=== PATIENT | female | born 1940 | race Caucasian/White ===

== ENCOUNTER 2021-06-25 11:11 | Inpatient (IN) | payer OTHER, MEDICARE ==
[~2021-06-25] VITALS: Ht 157.5 cm; Wt 72.2 kg
[~2021-06-25 11:11] MED LIST: CARAFATE 11 GM/10 M1 PO; CEFDINIR300 MG PO; FERRO-TIME325 MG PO; HALOPERIDOL 5 MG5 MG PO; HYDROCODON-ACE1 EAC7 PO; ONDANSETRON HCL4 M1 PO; PROTONIX40 M2 PO; RISPERDAL 1 MG T1 MG PO; RISPERDAL2 MG PO
[2021-06-25 11:35] VITALS: BP 125/58
[2021-06-25] MEDS ORDERED: APAP650 PO (11:49)
[2021-06-25 12:19] LABS: ABSOLUTE LYMPHOCYTES 0.8 thou/uL (0.8-5.3); EOSINOPHILS 0.1 %; HEMOGLOBIN 11.9 gm/dL (12.0-15.0); LYMPHOCYTES 9.1 %
[2021-06-25 12:20] LABS: ABSOLUTE MONOCYTES 0.8 thou/uL (0.0-1.2); ABSOLUTE NEUTROPHILS 6.7 thou/uL (1.6-8.1); BASOPHILS 0.4 %; HEMATOCRIT 35.6 % (37.0-47.0); MCH 30.6 pg (26.0-34.0); MCHC 33.4 g/dL (28.0-37.0); MCV 91.4 fL (80.0-100.0); MONOCYTES 9.8 %; MPV 7.2 fl. (7.2-11.1); NUCLEATED RBCS 0 /100WBC; PLATELET COUNT* 336 thou/uL (150-400); POLYS 80.6 %; WBC 8.3 thou/uL (4.0-11.0)
[2021-06-25 12:26] LABS: CALCIUM 7.5 mg/dL (8.5-10.1); CREATININE 0.6 mg/dL (0.6-1.3); POTASSIUM 3.7 mmol/L (3.5-5.1)
[2021-06-25 12:32] LABS: ALBUMIN 2.4 g/dL (3.4-5.0); TOTAL BILIRUBIN 0.4 mg/dL (<0.1-1.0); TOTAL PROTEIN 6.3 g/dL (6.4-8.2)
[2021-06-25 12:57] LABS: PCO2 40.6 mmHg (35.0-45.0); PO2 63.4 mmHg (75.0-100.0); pH 7.472 (7.340-7.450)
[2021-06-25 14:28] LABS: URINE BLOOD NEGATIVE (Negative); URINE CLARITY CLEAR; URINE COLOR DARK YELLOW; URINE GLUCOSE-RANDOM NEGATIVE (Negative); URINE KETONES 1+ (Negative); URINE LEUKOCYTES-REFLEX NEGATIVE (Negative); URINE NITRITE-REFLEX NEGATIVE (Negative); URINE PROTEIN 1+ (Negative); URINE SPECIFIC GRAVITY 1.025 (1.005-1.030)
[2021-06-25 14:32] LABS: ICTOTEST (BILI CONFIRMATORY) Negative (Negative); URINE BILIRUBIN 2+ (Negative)
[2021-06-25 16:24] VITALS: BP 124/60
[2021-06-25 16:48] VITALS: BP 109/50
--- NOTE | 2021-06-25 18:42 | NUR ---
PATIENT ADMITTED TO ROOM 115 FROM ER. PATIENT SLEEPING BUT AROUSES TO STIMULI AND NAME. PATIENT DAUGHTER BERT HERE TO ANSWER QUESTIONS FOR PATIENT. [address], PATIENT SAT 88-89% WHILE SLEEPING. INCREASED TO 3L NC. NO SKIN BREAKDOWN NOTED. IVF INFUSING. WILL NOTIFY SUPERVISOR AREA PHYSICIAN FOR MEDICATIONS. FALL RISK PROTOCOL IN PLACE. DISTRICT MANAGER POSTAL SERVICE IN PLACE, SR.
[2021-06-26] VITALS: BP 114/55
[2021-06-26 04:00] VITALS: BP 106/46
[2021-06-26 08:00] VITALS: BP 115/54
--- NOTE | 2021-06-26 10:02 | EKG ---
[place] [address] ELECTROCARDIOGRAM REPORT Name: AMADO LI Room: [address] IN [facility]#: [id number] Admission: 06/25/21 Attend Phys: Sumeet Stoddard Discharge: Date of : 38 Date of Service: 06/25/21 1138 Report #: [id number] THIS REPORT FOR: //name// [facility] ED Test Date: 2021-06-25 Test Time: 11:38:43 Pat Name: AMADO LI Department: Room: [facility] Gender: F Rehabilitation Worker: : 1940 Requested By: Tisha Lujan Order Number: [id number] MD: Blake Her Measurements Intervals [place] Rate: 97 P: 17 DC: 133 QRS: -32 QRSD: 111 T: -16 QT: 390 QTc: 496 Interpretive Statements Sinus tachycardia Rare PACs and PVCs Inferior infarct, age indeterminate possible Lateral leads are also involved No previous ECG available for comparison Electronically Signed On 06-25-2021 15:37:13 SUPERVISOR CUSTOMER COMPLAINT SERVICE by Blake Her [email or web address] <ELECTRONICALLY SIGNED> By: Blake Her MD, [facility] 06/25/21 1537 1138 1138 Blake Her MD, [facility] /EPI
--- NOTE | 2021-06-26 11:56 | NUR ---
the patient is alert. the patient follows simple commands. her daughter is at the bedside. mcmahan intact and patent. fall precautions in place. 8 l of oxygen via nasal cannula. call light within reach.
[2021-06-26 12:09] VITALS: BP 111/48
--- NOTE | 2021-06-26 15:59 | NUR ---
CM ATTEMPTED TO CONTACT PT DAUGHTERS (GUCCI AMIN [phone] AND BERT DAUGHERTY [phone]) TO CONDUCT ASSESSMENT BUT WAS NOT ABLE TO MAKE CONTACT. CM LEFT VOICEMAIL. CM TO FOLLOW.
[2021-06-26 16:00] VITALS: BP 101/44
[2021-06-26 17:41] LABS: ABSOLUTE LYMPHOCYTES 0.5 thou/uL (0.8-5.3); ABSOLUTE MONOCYTES 0.5 thou/uL (0.0-1.2); ABSOLUTE NEUTROPHILS 4.2 thou/uL (1.6-8.1); BASOPHILS 0.3 %; HEMOGLOBIN 11.2 gm/dL (12.0-15.0); LYMPHOCYTES 8.8 %; MCH 30.3 pg (26.0-34.0); MCHC 32.9 g/dL (28.0-37.0); MCV 91.9 fL (80.0-100.0); MONOCYTES 9.1 %; MPV 6.9 fl. (7.2-11.1); NUCLEATED RBCS 0 /100WBC; PLATELET COUNT* 395 thou/uL (150-400); POLYS 81.8 %; RDW-CV 14.1 % (10.5-14.5); WBC 5.1 thou/uL (4.0-11.0)
[2021-06-26 17:56] LABS: ALBUMIN 2.1 g/dL (3.4-5.0); CALCIUM 7.8 mg/dL (8.5-10.1); CREATININE 0.7 mg/dL (0.6-1.3); MAGNESIUM 2.2 mg/dL (1.8-2.4); PHOSPHORUS* 2.8 mg/dL (2.5-4.9); POTASSIUM 3.6 mmol/L (3.5-5.1); TOTAL BILIRUBIN 0.4 mg/dL (<0.1-1.0); TOTAL PROTEIN 5.8 g/dL (6.4-8.2)
[2021-06-26 20:00] VITALS: BP 112/50
[2021-06-27] VITALS: BP 125/58
[2021-06-27 04:00] VITALS: BP 123/52
--- NOTE | 2021-06-27 05:43 | NUR ---
ASSUMED PT CARE AT APPROX 1930. PT IS AWAKE AND ORIENTED SELF/PLACE. PT IS NOT IN DISTRESS, NO DESATURATIONS NOTED ON 8L OF O2/HFNC. PT IS TRACING SR ON THE MACHINE SHOP SPECIALIST. PT DENIES PAIN/DISCOMFORT. NO ACUTE CHANGES THIS SHFT. CALL LIGHT WITHIN REACH. HOURLY ROUNDING DONE FOR PT SAFETY. FALL PRECAUTIONS PLACE.
[2021-06-27 11:36] VITALS: BP 114/51
--- NOTE | 2021-06-27 18:00 | NUR ---
CM ASSESSMENT ASSESSMENT COMPLETED WITH BERT DAUGHERTY ([phone]). PT LIVES IN GUEST HOUSE NEAR DAUGHTER GUCCI'S HOME ([phone]). GUEST HOME IS SINGLE STORY. PT USES A WALKER IN HOME AND WHEELCHAIR IN COMMUNITY. PT DAUGHTER'S ASSIT WITH DRESSING, BATHING, AND MANAGING MEDS. PT HAS HX OF SNF IN [place] (SEVERAL YEARS AGO) AND HX OF HH WITH UNKNOWN AGENCY (6 MONTHS AGO). FAMILY OPEN TO DC HOME WITH HH. CM TO FOLLOW.
--- NOTE | 2021-06-27 19:52 | NUR ---
CONTINUE PLAN OF CARE AND FREQUENTS TURNS. UPDAT PT'S DAUGHTER AT BEDSIDE TODAY. PT TAKING IN GOOD PO. CHANGE DIET TO NO CAFFIENE PER DAUGHTER REQUEST.
[2021-06-27 21:00] VITALS: BP 132/57
[2021-06-28 00:40] VITALS: BP 130/53
--- NOTE | 2021-06-28 04:40 | NUR ---
Confused and says words repetively in either Chinese or Indonesian. She can answer questions in Chinese and in Indonesian appropriately, but then will get stuck in a phrase pattern. She is still on O2 7L n/c. Gage Rodriguez slept well.
[2021-06-28 04:44] LABS: ALBUMIN 2.1 g/dL (3.4-5.0); CALCIUM 7.7 mg/dL (8.5-10.1); CREATININE 0.5 mg/dL (0.6-1.3); MAGNESIUM 2.4 mg/dL (1.8-2.4); POTASSIUM 4.3 mmol/L (3.5-5.1); TOTAL BILIRUBIN 0.3 mg/dL (<0.1-1.0); TOTAL PROTEIN 5.5 g/dL (6.4-8.2)
[2021-06-28 04:52] VITALS: BP 123/52
[2021-06-28 05:07] LABS: HEMATOCRIT 32.9 % (37.0-47.0); HEMOGLOBIN 10.8 gm/dL (12.0-15.0); MCH 30.5 pg (26.0-34.0); MCHC 32.7 g/dL (28.0-37.0); MCV 93.1 fL (80.0-100.0); NUCLEATED RBCS 0 /100WBC; PLATELET COUNT* 442 thou/uL (150-400); RBC 3.53 mil/uL (4.20-5.00); RDW-CV 13.8 % (10.5-14.5); WBC 8.2 thou/uL (4.0-11.0)
[2021-06-28 06:21] LABS: ABSOLUTE EOSINOPHILS 0.1 thou/uL (0.0-0.7); ABSOLUTE LYMPHOCYTES 0.8 thou/uL (0.8-5.3); ABSOLUTE MONOCYTES 0.2 thou/uL (0.0-1.2); ABSOLUTE NEUTROPHILS 7.1 thou/uL (1.6-8.1); ATYPICAL LYMPHS 2 %; PLATELET ESTIMATE INCREASED
[2021-06-28 06:22] LABS: CLUMPED PLTS OCCASIONAL; LARGE PLATELETS OCCASIONAL
[2021-06-28 10:05] VITALS: BP 127/64
[2021-06-28 12:30] VITALS: BP 138/70
[2021-06-28 16:38] VITALS: BP 120/57
--- NOTE | 2021-06-28 17:30 | NUR ---
CM FOLLOWUP PT NOT MED CLEAR AND ON 9L O2. CM TO FOLLOW FOR DC NEEDS.
[2021-06-28 23:46] VITALS: BP 105/53
[2021-06-29 04:00] VITALS: BP 123/55
--- NOTE | 2021-06-29 04:59 | NUR ---
ASSUMED CARE OF PT AT 1900. PT IS CONFUSED. VSS. PERJORDI. NO COMPLAINTS OF PAIN. PT IS NOW ON 15 LITERS O2. PT IS IN SINUS RYTHM ON THE TELEMETRY. PT IS RESTING COMFORTABLY IN BED. RESPIRATIONS ARE EVEN AND NONLABORED. WILL CONTINUE TO MONITOR PT.
[2021-06-29 08:00] VITALS: BP 136/67
[2021-06-29 11:45] LABS: ABSOLUTE BASOPHILS 0.1 thou/uL (0.0-0.2); ABSOLUTE LYMPHOCYTES 0.8 thou/uL (0.8-5.3); ABSOLUTE MONOCYTES 0.4 thou/uL (0.0-1.2); ABSOLUTE NEUTROPHILS 8.3 thou/uL (1.6-8.1); BASOPHILS 1.2 %; EOSINOPHILS 0.4 %; HEMATOCRIT 34.8 % (37.0-47.0); HEMOGLOBIN 11.5 gm/dL (12.0-15.0); LYMPHOCYTES 8.7 %; MCH 31.1 pg (26.0-34.0); MCV 94.3 fL (80.0-100.0); MONOCYTES 4.1 %; MPV 7.9 fl. (7.2-11.1); NUCLEATED RBCS 1 /100WBC; PLATELET COUNT* 484 thou/uL (150-400); POLYS 85.6 %; RBC 3.68 mil/uL (4.20-5.00); RDW-CV 13.8 % (10.5-14.5); WBC 9.7 thou/uL (4.0-11.0)
[2021-06-29 11:55] LABS: ALBUMIN 2.3 g/dL (3.4-5.0); CALCIUM 7.9 mg/dL (8.5-10.1); CREATININE 0.4 mg/dL (0.6-1.3); POTASSIUM 5.1 mmol/L (3.5-5.1); TOTAL BILIRUBIN 0.4 mg/dL (<0.1-1.0); TOTAL PROTEIN 5.5 g/dL (6.4-8.2)
[2021-06-29 12:00] VITALS: BP 129/68
[2021-06-29 16:00] VITALS: BP 138/71
--- NOTE | 2021-06-29 17:26 | NUR ---
CM FOLLOWUP PT NOT MED CLEAR AND ON STEROIDS. PT TO STAY THROUGH WEEKEND. PT PENDING ACCEPTANCE WITH [facility] ([phone]). CM TO FOLLOW.
--- NOTE | 2021-06-29 20:23 | NUR ---
Gave report to shift commander nurse. patient in bed, heart monitor on, nasal cannula at 15 L. Has a mcmahan cath, IV in left AC, accu check, takes pills in applesauce or pudding. Greek speaking only. HX of schizo and makes repeated noises when nervous. Had pulm conslt today and OT/ PT, Need MRSA and sputum, passed on to shift commander nurse. Bilandres TAPIA done.
[2021-06-30] VITALS: BP 135/70
[2021-06-30 04:00] VITALS: BP 134/47
--- NOTE | 2021-06-30 06:02 | NUR ---
PT IS MEXICAN SPEAKING AND HAS LIMITED MALTESE. SHE TAKES PILLS WHOLE WITH SIPS OF FLUID LONG THEY ARE SMALL, LARGER ONES NEED TO BE CRUSHED AND IN APPLESAUCE. IV ANTIBIOTICS PER EMAR. ALYSON TO ELENO AMBROCIO LIGHT YELLOW URINE OUTPUT. CALL LIGHT IN REACH FOR PT SAFETY.
[2021-06-30 08:00] VITALS: BP 129/60
[2021-06-30 08:52] LABS: ABSOLUTE BASOPHILS 0.1 thou/uL (0.0-0.2); ABSOLUTE LYMPHOCYTES 0.8 thou/uL (0.8-5.3); ABSOLUTE MONOCYTES 0.4 thou/uL (0.0-1.2); ABSOLUTE NEUTROPHILS 6.9 thou/uL (1.6-8.1); HEMATOCRIT 36.8 % (37.0-47.0); HEMOGLOBIN 12.1 gm/dL (12.0-15.0); LYMPHOCYTES 9.6 %; MCH 30.1 pg (26.0-34.0); MCHC 32.8 g/dL (28.0-37.0); MCV 91.7 fL (80.0-100.0); MONOCYTES 4.5 %; MPV 6.9 fl. (7.2-11.1); NUCLEATED RBCS 0 /100WBC; PLATELET COUNT* 488 thou/uL (150-400); POLYS 84.9 %; RBC 4.02 mil/uL (4.20-5.00); RDW-CV 13.8 % (10.5-14.5); WBC 8.1 thou/uL (4.0-11.0)
[2021-06-30 09:05] LABS: ALBUMIN 2.3 g/dL (3.4-5.0); CREATININE 0.4 mg/dL (0.6-1.3); MAGNESIUM 2.3 mg/dL (1.8-2.4); PHOSPHORUS* 3.9 mg/dL (2.5-4.9); TOTAL BILIRUBIN 0.4 mg/dL (<0.1-1.0); TOTAL PROTEIN 5.8 g/dL (6.4-8.2)
[2021-06-30 09:32] LABS: PCO2 46.7 mmHg (35.0-45.0); PO2 78.7 mmHg (75.0-100.0); pH 7.477 (7.340-7.450)
[2021-06-30 12:49] VITALS: BP 99/49
[2021-06-30 17:36] VITALS: BP 119/68
[2021-06-30 20:00] VITALS: BP 105/60
[2021-07-01] VITALS: BP 120/54
[2021-07-01 04:00] VITALS: BP 127/61
[2021-07-01 05:09] LABS: HEMATOCRIT 35.3 % (37.0-47.0); HEMOGLOBIN 11.6 gm/dL (12.0-15.0); MCH 30.1 pg (26.0-34.0); MCHC 32.8 g/dL (28.0-37.0); MCV 91.6 fL (80.0-100.0); MPV 6.6 fl. (7.2-11.1); NUCLEATED RBCS 0 /100WBC; PLATELET COUNT* 469 thou/uL (150-400); RBC 3.86 mil/uL (4.20-5.00); RDW-CV 13.9 % (10.5-14.5); WBC 8.6 thou/uL (4.0-11.0)
[2021-07-01 05:27] LABS: ALBUMIN 2.1 g/dL (3.4-5.0); CALCIUM 7.9 mg/dL (8.5-10.1); CREATININE 0.5 mg/dL (0.6-1.3); POTASSIUM 4.4 mmol/L (3.5-5.1); TOTAL BILIRUBIN 0.5 mg/dL (<0.1-1.0); TOTAL PROTEIN 5.4 g/dL (6.4-8.2)
--- NOTE | 2021-07-01 05:46 | NUR ---
PT AO X4 WITH DAUGHTER AT BEDSIDE THIS PM. SHE STATES THAT HER FAMILY DOES NOT WISH TO HAVE REMDESIVIR UNTIL THEY SPEAK WITH THE DR, DUE TO SIDE EFFECTS. MOTHER IS MONGOLIAN SPEAKING ONLY. OXYGEN NEED INCREASED TO 15L HFNC. PT REPORTS FEELING VERY CONGESTED IN HER UPPER CHEST AND AND IS NOT HAVING ANY PRODUCTION WIHT HER COUGH. PT HAS SHIELDS TO DD WITH CLEAR LT YELLOW URINE. DAUGHTER REPORTS PT HAS NOT HAD BM SINCE SHE WAS ADMITTED ON 06/25. MEDS PER EMAR. CALL LIGHT IN REACH AND BED ALARM ON FOR SAFETY.
[2021-07-01 07:00] VITALS: BP 123/62
[2021-07-01 07:55] LABS: ABSOLUTE LYMPHOCYTES 0.7 thou/uL (0.8-5.3); ABSOLUTE MONOCYTES 0.3 thou/uL (0.0-1.2); ABSOLUTE NEUTROPHILS 7.7 thou/uL (1.6-8.1); PLATELET ESTIMATE INCREASED
[2021-07-01 12:00] VITALS: BP 107/55
[2021-07-02 00:30] VITALS: BP 136/69
--- NOTE | 2021-07-02 05:10 | NUR ---
PT LYING QUIETLY IN BED, RESTING ON 12L HFNC. LUNGS DIMINISHED WITH OCCASIONAL CRACKLES HEARD IN ALL LUNG RIGGINS, SHE IS ON 12L HFNC. PT HAS COUGH THAT IS NON PRODUCTIVE. SHE HAS A POOR APPETITE. VSS PT HAS BEEN AFEBRILE. TELEMETRY IS NSR IN 70-80. CALL LIGHT IN REACH, BED ALARM ON FOR PT SAFETY
[2021-07-02 08:10] VITALS: BP 115/56
[2021-07-02 14:19] VITALS: BP 97/51
--- NOTE | 2021-07-02 18:46 | NUR ---
CM FOLLOWUP PT NOT MED CLEAR AND PT FAMILY SEEKING REFERRAL TO SNF. PT REFERRED TO [facility] [phone]). CM TO FOLLOW.
[2021-07-02 18:47] VITALS: BP 107/45
[2021-07-03] VITALS: BP 83/38
[2021-07-03 04:00] VITALS: BP 114/54
[2021-07-03 04:21] LABS: ABSOLUTE LYMPHOCYTES 0.5 thou/uL (0.8-5.3); ABSOLUTE MONOCYTES 0.2 thou/uL (0.0-1.2); ABSOLUTE NEUTROPHILS 6.2 thou/uL (1.6-8.1); BASOPHILS 0.1 %; HEMOGLOBIN 11.6 gm/dL (12.0-15.0); LYMPHOCYTES 7.1 %; MCH 30.5 pg (26.0-34.0); MCHC 33.3 g/dL (28.0-37.0); MCV 91.6 fL (80.0-100.0); MONOCYTES 3.2 %; MPV 6.8 fl. (7.2-11.1); NUCLEATED RBCS 0 /100WBC; PLATELET COUNT* 432 thou/uL (150-400); POLYS 89.6 %; RBC 3.82 mil/uL (4.20-5.00); RDW-CV 13.8 % (10.5-14.5)
[2021-07-03 04:50] LABS: ALBUMIN 2.1 g/dL (3.4-5.0); CALCIUM 7.7 mg/dL (8.5-10.1); CREATININE 0.5 mg/dL (0.6-1.3); MAGNESIUM 2.3 mg/dL (1.8-2.4); POTASSIUM 4.6 mmol/L (3.5-5.1); TOTAL BILIRUBIN 0.5 mg/dL (<0.1-1.0)
--- NOTE | 2021-07-03 06:36 | NUR ---
PT AO X4 LYING IN BED AT TIME OF ASSESSEMENT. LUNGS CLEARING IN UPPERS AND NO COUGH NOTED. SHIELDS TO DD WITH CLEAR YELLOW URINE. IV ANTIBIOTICS INFUSED WITHOUT PROBLEM. PT SLEPT WELL. CALL LIGHT IN REACH AND BED ALARM ON FOR PT SAFETY
[2021-07-03 07:25] VITALS: BP 103/51
[2021-07-03 11:37] VITALS: BP 109/56
[2021-07-03 15:42] VITALS: BP 98/43
--- NOTE | 2021-07-03 16:46 | NUR ---
CM FOLLOWUP PT NOT MED CLEAR. PT 8 DAYS PAST COVID DX AND PEND ACCEPTANCE TO [facility]. PT ALSO REFERRED TO [facility]. CM TO FOLLOW.
--- NOTE | 2021-07-03 19:16 | CON ---
[address] [address] CONSULTATION Name: GUILLERMOAMADO Elkins Room: [address] IN .R.#: [id number] Admission: 06/25/21 Attend Phys: Ricardo Pearson Discharge: Date of : 38 Report #: [id number] THIS REPORT FOR: cc: Milagros Mckeon. Milagros Dallas. Carlo Hess MD ~ DATE OF CONSULTATION: 06/29/2021 REQUESTING PHYSICIAN: Ulisses Moreira MD INDICATION FOR CONSULTATION: Acute hypoxemic respiratory failure secondary to COVID-19. HISTORY OF PRESENT ILLNESS: An 81-year-old female with past medical history as mentioned below. This does include a history of schizophrenia as well as breast cancer. She had lumpectomy as well as node dissection performed in 2002. I do not see any mention of a cardiac or respiratory disease on her previous records. The patient has not been vaccinated for COVID-19 is now admitted with COVID-19. She appears to be comfortable, still on nasal cannula; however, there is a progressive increase in her oxygen needs, wean up to 15 liters nasal cannula. The patient may have limited knowledge of Tristanian and was difficult to communicate with her. She does have some shortness of breath. She does not have any other complaints at this time. PAST MEDICAL HISTORY: Schizophrenia, right-sided breast cancer, lumpectomy and node dissection in 2002, colonoscopy, anemia, gastroesophageal reflux disease, peptic ulcer, right renal mass. I do not have a measure of her left ventricular ejection fraction available. CURRENT MEDICATIONS: List in [facility] reviewed. HOME MEDICATIONS: List in [facility] reviewed. SOCIAL HISTORY: No history of smoking. ALLERGIES: NO KNOWN DRUG ALLERGIES. FAMILY HISTORY: No pertinent family history. VACCINATION HISTORY: Unvaccinated for COVID-19. PHYSICAL EXAMINATION: GENERAL: She is awake; however, communication is limited. Vitals in the records. NECK: Does not [place] [address] CONSULTATION Name: AMADO LI Room: [address] IN [facility].#: [id number] Admission: 06/25/21 Attend Phys: Ricardo Pearson Discharge: Date of : 38 Report #: [id number] CHEST: Breath sounds bilaterally equal. No added sounds. HEART: Regular. There is no murmur. ABDOMEN: Soft and nontender. EXTREMITIES: Lower extremities do show trace to 1+ edema, no calf tenderness. LABORATORY DATA: In [facility] reviewed. CTA chest from the in [facility] reviewed. Chest x-rays including one that I repeated now in [facility] reviewed. ASSESSMENT AND PLAN: 1. Acute hypoxemic respiratory failure secondary to COVID-19, titrate oxygen. Avoid sleeping supine. 2. COVID-19. She is on dexamethasone. I will continue as currently prescribed. She is also on remdesivir. Also continue. I will go ahead and give her a dose of Actemra now. 3. Bilateral pulmonary infiltrates. Discontinue azithromycin after one more dose. I broadened her ceftriaxone to cefepime considering worsening oxygen needs. Recommend obtaining a sputum culture as well as nasal swab for MRSA. Recommend checking tomorrow as to whether these have actually been drawn. Otherwise, recommend reordering, at least it will be possible to obtain a nasal swab for methicillin-resistant Staphylococcus aureus. If the patient fails to improve, then I would favor considering adding methicillin-resistant Staphylococcus aureus coverage pending further evaluation and would recommend either considering linezolid or vancomycin. Doxycycline is not likely to be effective. 4. Fluid overload. I will give her a dose of Lasix and now recommend reassessing tomorrow. If BUN and creatinine remain stable, then I would favor giving her more Lasix tomorrow. We will also check an echocardiogram. 5. Evaluation for thromboembolic phenomena. CT chest is negative. We will also obtain venous Dopplers. 6. Deep venous thrombosis prophylaxis, on Lovenox. I increased to intermediate dose. 7. Gastrointestinal prophylaxis/history of reflux, already on Protonix. 8. Clostridium difficile prophylaxis, Lactinex. Thanks for this consultation. <ELECTRONICALLY SIGNED> By: Carlo Roberson MD 07/03/21 1916 1538 1913Ashelley Roberson MD /nt
[2021-07-03 21:18] VITALS: BP 125/67
[2021-07-04] VITALS: BP 132/66
[2021-07-04 04:00] VITALS: BP 136/74
[2021-07-04 04:48] LABS: ABSOLUTE LYMPHOCYTES 1.7 thou/uL (0.8-5.3); ABSOLUTE MONOCYTES 0.7 thou/uL (0.0-1.2); ABSOLUTE NEUTROPHILS 4.6 thou/uL (1.6-8.1); BASOPHILS 0.1 %; EOSINOPHILS 0.2 %; HEMATOCRIT 34.2 % (37.0-47.0); HEMOGLOBIN 11.2 gm/dL (12.0-15.0); LYMPHOCYTES 24.1 %; MCH 30.1 pg (26.0-34.0); MCHC 32.6 g/dL (28.0-37.0); MCV 92.3 fL (80.0-100.0); MONOCYTES 10.1 %; MPV 7.1 fl. (7.2-11.1); NUCLEATED RBCS 0 /100WBC; PLATELET COUNT* 387 thou/uL (150-400); POLYS 65.5 %; RBC 3.71 mil/uL (4.20-5.00); WBC 7.1 thou/uL (4.0-11.0)
[2021-07-04 05:36] LABS: ALBUMIN 2.1 g/dL (3.4-5.0); CALCIUM 7.5 mg/dL (8.5-10.1); CREATININE 0.4 mg/dL (0.6-1.3); MAGNESIUM 2.2 mg/dL (1.8-2.4); POTASSIUM 3.7 mmol/L (3.5-5.1); TOTAL BILIRUBIN 0.4 mg/dL (<0.1-1.0); TOTAL PROTEIN 4.8 g/dL (6.4-8.2)
[2021-07-04 09:00] VITALS: BP 98/46
[2021-07-04 12:00] VITALS: BP 111/57
[2021-07-04 16:00] VITALS: BP 99/47
--- NOTE | 2021-07-04 16:45 | NUR ---
CM FOLLOWUP PT CLINICALLY ACCEPTED TO [facility] ([phone]) PENDING STAFFING. CM TO FOLLOW FOR DC NEEDS.
[2021-07-04 20:50] VITALS: BP 110/52
[2021-07-05] VITALS: BP 100/45
[2021-07-05 04:00] VITALS: BP 108/54
[2021-07-05 08:00] VITALS: BP 105/54
[2021-07-05 12:16] VITALS: BP 105/51
[2021-07-05 16:20] VITALS: BP 114/57
--- NOTE | 2021-07-05 16:42 | NUR ---
CM FOLLOWUP PT CLINICALLY ACCEPTED TO [facility] ([phone]). [facility] WILL HAVE A BED AVIAILABE ON 07/06/21. CM TO FOLLOW.
[2021-07-06 00:27] VITALS: BP 99/47
--- NOTE | 2021-07-06 04:01 | NUR ---
ASSUMED CARE OF PT AT 1900. PT IS CONFUSED. VSS. PERRLA. NO COMPLAINTS OF PAIN. PT IS ON 3 LITERS O2. PT IS IN SINUS RYTHM ON THE TELEMETRY. PT IS RESTING COMFORTABLY IN BED. RESPIRATIONS ARE EVEN AND NONLABORED. WILL CONTINUE TO MONITOR PT.
[2021-07-06 04:15] VITALS: BP 118/54
[2021-07-06 08:12] VITALS: BP 104/52
[2021-07-06 12:00] VITALS: BP 98/59
[2021-07-06] MEDS ORDERED: CHILDREN'S ASPI81 M1 PO (12:40)
[2021-07-06] MEDS ORDERED: VITAMIN D325 MC2 PO (12:40)
[2021-07-06] MEDS ORDERED: DEXAMETHASONE1 MG PO (12:40)
[2021-07-06 16:00] VITALS: BP 128/52
--- NOTE | 2021-07-06 18:52 | NUR ---
CM FOLLOWUP PT ACCEPTED TO [facility] ([phone]) FOR TRANSPORT TO [place] 07/06/21. CM REQUESTED TIME[facility] IN WHICH PT COULD ARRIVE, BUT WAS NEVER PROVIDED WITH INFORMATION. [facility] THEN CONTACTED CM TO INQUIRE ABOUT PT'S MOZAMBICAN COMPREHENSION. CM SPOKE WITH PT FAMILY AND WAS INFORMED PT UNDERSTANDS MOZAMBICAN AND CAN SPEAK A LITTLE. CM INFORMED [facility]. [facility] ADMISSIONS INDICATED THEY WOULD NEED TO SPEAK WITH NURSING AT THEIR FACILITY TO ENSURE STAFFING COULD ACCOMODATE PT BEFORE THEY ARRANGED TRANSPORT FOR PT. CM TO FOLLOWP
[2021-07-06 20:00] VITALS: BP 95/40
[2021-07-07] VITALS (7 sets, daily range): BP systolic 92–137; BP diastolic 43–56
--- NOTE | 2021-07-07 04:51 | NUR ---
ASSUMED PT CARE AT APPROX 1930. PT IS AWAKE AND ORIENTED TO SELF AND PLACE. PT IS TRACING SR ON THE EARLY CHILDHOOD ASSOCIATE. spO2 88-89 ON 3L OF O2, INCREASED O2 TO UNTIL 6L TO KEEP spO2 >92%. PT IS CLOSELY MONITORED. HIGH FALL PRECAUTIONS IN PLACE.
[2021-07-07 16:13] LABS: HEMATOCRIT 35.1 % (37.0-47.0); HEMOGLOBIN 11.7 gm/dL (12.0-15.0); MCH 30.8 pg (26.0-34.0); MCHC 33.2 g/dL (28.0-37.0); MCV 92.7 fL (80.0-100.0); MPV 7.4 fl. (7.2-11.1); NUCLEATED RBCS 0 /100WBC; PLATELET COUNT* 299 thou/uL (150-400); RBC 3.79 mil/uL (4.20-5.00); RDW-CV 14.2 % (10.5-14.5); WBC 4.5 thou/uL (4.0-11.0)
[2021-07-07 17:03] LABS: ALBUMIN 2.8 g/dL (3.4-5.0); CALCIUM 7.9 mg/dL (8.5-10.1); CREATININE 0.6 mg/dL (0.6-1.3); POTASSIUM 4.6 mmol/L (3.5-5.1); TOTAL BILIRUBIN 0.6 mg/dL (<0.1-1.0); TOTAL PROTEIN 5.6 g/dL (6.4-8.2)
[2021-07-07 17:13] LABS: ABSOLUTE LYMPHOCYTES 0.4 thou/uL (0.8-5.3); ABSOLUTE MONOCYTES 0.2 thou/uL (0.0-1.2); ABSOLUTE NEUTROPHILS 3.9 thou/uL (1.6-8.1); PLATELET ESTIMATE ADEQUATE
[2021-07-08 04:50] VITALS: BP 115/61
[2021-07-08 08:00] VITALS: BP 101/45
--- NOTE | 2021-07-08 10:12 | NUR ---
PT WAS TRIED ON RA, PT SP02-87%, PLACED PT ON 1L NC. SP02-95%
[2021-07-08 12:00] VITALS: BP 96/50
[2021-07-08 16:00] VITALS: BP 102/53
[2021-07-08 20:00] VITALS: BP 92/42
[2021-07-09] VITALS: BP 95/43
[2021-07-09 04:00] VITALS: BP 111/51
--- NOTE | 2021-07-09 06:46 | NUR ---
No acute changes this shift. Pt remained on 2L of o2, no desaturations noted. Pt is tracing Sr on the quality assurance monitor body. High fall precautions in place.
[2021-07-09 08:00] VITALS: BP 100/44
[2021-07-09 11:51] VITALS: BP 103/48
--- NOTE | 2021-07-09 13:51 | NUR ---
AT 1200 FED PATIENT LUNCH. PATIENT HAS A VERY GOOD APPETITE, AND ATE ALMOST 100% OF HER MEAL.
--- NOTE | 2021-07-09 15:18 | NUR ---
THIS PATIENT IS NOW OUT OF ISOLATION AFTER DIAGNOSIS OF COVID. PATIENT IS AWAKE, BUT CANNOT UNDERSTAND PATIENT. BASICALLY BABBLES. DID NOT HEAR ANY WORDS. PATIENT IS ON OXYGEN 2 LITERS PER NC. PATIENT SPEAKS A LITTLE TURKISH. MOSTLY UNDERSTANDS [place]IT[place] ISLANDER. WILL DC IV AND SHIELDS CATHETER. PATIENT IS TO BE PICKED UP BY EMS AND SENT TO [facility] AROUND 1600..
--- NOTE | 2021-07-09 15:36 | NUR ---
DISCONTINUED PATIENTS SHIELDS BEFORE TRANSFER TO [facility]. PLACE PATIENT IN A DEPENDS. OXYGEN ALSO DC'D.
--- NOTE | 2021-07-09 15:51 | NUR ---
CALLED [facility] TO GIVE REPORT. THEY ARE TO CALL BACK.
--- NOTE | 2021-07-09 16:53 | NUR ---
CM FOLLOWUP PT MED CLEAR FOR DC AND WILL DC TO [facility] ([phone]) AT 4PM ON 07/09/21 WITH TRANSPORT BY [facility] ([phone]). PLAN DISCUSSED WIT HPT DAUGHTER BERT.
--- NOTE | 2021-07-09 17:15 | NUR ---
patient leaves with ems to transfer to [facility]. patient is awake. Daughter is present and going to facility. patient is stable.
== END 2021-07-09 17:15 | DRG 177 ==
LOC: M.ERS 11:11 → M.ORTHSURG 13:20 → M.TBA-ER 13:20 → M.ORTHSURG 16:32
PROVIDERS: Internal Medicine; Internal Medicine Critical Care Medicine; Nurse Practitioner Family; ADMIT Internal Medicine; ATTEND Internal Medicine
PROC: 5A0935A Assistance with Respiratory Ventilation, Less than 24 Consecutive Hours, High Flow/Velocity Cannula (ICD-10-PCS; 2021-07-02)
PROC: XW033H5 Introduction of Tocilizumab into Peripheral Vein, Percutaneous Approach, New Technology Group 5 (ICD-10-PCS; 2021-07-02)
PROC: XW033E5 Introduction of Remdesivir Anti-infective into Peripheral Vein, Percutaneous Approach, New Technology Group 5 (ICD-10-PCS; 2021-07-02)
PROC: 5A0935A Assistance with Respiratory Ventilation, Less than 24 Consecutive Hours, High Flow/Velocity Cannula (ICD-10-PCS; 2021-07-03)
PROC: 5A0935A Assistance with Respiratory Ventilation, Less than 24 Consecutive Hours, High Flow/Velocity Cannula (ICD-10-PCS; 2021-07-06)
PROC: 5A0935A Assistance with Respiratory Ventilation, Less than 24 Consecutive Hours, High Flow/Velocity Cannula (ICD-10-PCS; principal; 2021-07-07)
DX: U07.1 COVID-19 (principal); J96.01 Acute respiratory failure with hypoxia; J12.82 Pneumonia due to coronavirus disease 2019; J98.11 Atelectasis; G93.40 Encephalopathy, unspecified; R73.9 Hyperglycemia, unspecified; F03.90 Unspecified dementia, unspecified severity, without behavioral disturbance, psychotic disturbance, mood disturbance, and anxiety; T38.0X5A Adverse effect of glucocorticoids and synthetic analogues, initial encounter; Y92.89 Other specified places as the place of occurrence of the external cause; K59.00 Constipation, unspecified; E87.70 Fluid overload, unspecified; F20.9 Schizophrenia, unspecified; Z85.3 Personal history of malignant neoplasm of breast; K21.9 Gastro-esophageal reflux disease without esophagitis